=== PATIENT | female | born 1995 | race Caucasian/White ===

== ENCOUNTER 2018-07-02 00:29 | Emergency (ER) | payer OTHER ==
[~2018-07-02] VITALS: Ht 165.1 cm; Wt 94.3 kg
== END 2018-07-02 09:50 | disposition home or self-care (01) ==
LOC: ER 00:29
DX: O20.0 Threatened abortion (principal); Z34.01 Encounter for supervision of normal first pregnancy, first trimester

== ENCOUNTER 2019-05-06 21:49 | Emergency (ER) | payer OTHER ==
[~2019-05-06] VITALS: Ht 165.1 cm; Wt 92.1 kg
== END 2019-05-07 09:00 | disposition home or self-care (01) ==
LOC: ER 21:49
DX: O03.6 Delayed or excessive hemorrhage following complete or unspecified spontaneous abortion (principal)